=== PATIENT | female | born 1955 ===

== ENCOUNTER 2016-03-29 12:20 | Outpatient (RCR) | payer MEDICAID ==
--- OUTSIDE RECORDS SUMMARY | 2016-03-06 13:02 | XMS REPORT | Continuity of Care Document ---
Author Author [facility] Address Unknown Phone Unavailable Active Allergies and Adverse Reactions Not on File Current Medications Not on file Active Problems Not on file Social History Tobacco Use Types Packs/Day Years Used Date Never Assessed Plan of Care Health Maintenance Due Date Last Done Comments Hepatitis C Screening 1955 Tdap Vaccines 02/09/1967 Tetanus Vaccine (Td 02/09/1967 Booster) Cervical Cancer Screening 02/09/1977 Breast Cancer 1996 Screening-Mammogram Colon Cancer 02/09/2006 Screening-Colonoscopy Zoster Vaccine 2016 Influenza Vaccine (#1) 2016 Annual Wellness Visit 02/09/2021 Results from Last 3 Months Not on file
== END 2016-06-04 | disposition home or self-care (01) ==
LOC: ONC 12:20
PROVIDERS: ATTEND Radiology Radiation Oncology
DX: Z51.0 Encounter for antineoplastic radiation therapy (principal); C50.511 Malignant neoplasm of lower-outer quadrant of right female breast; Z17.0 Estrogen receptor positive status [ER+]
CPT/HCPCS: 77300; 77307; 77334; 77336; 77412; 77417